=== PATIENT | female | born 2000 | race Two or more races ===

== ENCOUNTER 2020-03-16 06:07 | Emergency (ER) | payer MEDICAID ==
[~2020-03-16] VITALS: Ht 162.6 cm; Wt 75.7 kg
[~2020-03-16 06:07] MED LIST: IBUP600T27 PO; [UNRECOGNIZED DRUG - CODE] EX
[2020-03-16 06:27] VITALS: BP 94/71
[2020-03-16 07:14] LABS: Basophils # (auto) 0 10 ^3/uL (0-0.2); Basophils % (auto) 0.4 % (0.0-2.0); Eosinophils # (auto) 0.1 10 ^3/uL (0-0.8); Eosinophils % (auto) 1.6 % (0.0-7.0); Hematocrit 38.5 % (36.0-46.0); Hemoglobin 13.2 g/dL (12.2-16.2); Lymphocytes # (auto) 2.3 10 ^3/uL (0.4-5.4); Lymphocytes % (auto) 30.5 % (10.0-50.0); Mean Corpuscular Hemoglobin 29.8 pg (28.0-32.0); Mean Corpuscular Hgb Conc. 34.2 g/dL (32.0-36.0); Monocytes # (auto) 0.4 10 ^3/uL (0-1.3); Monocytes % (auto) 5.6 % (0.0-12.0); Neutrophils # (auto) 4.6 10 ^3/uL (1.6-8.6); Neutrophils % (auto) 61.9 % (37.0-80.0); Nucleated Red Blood Cells % 0.1 %; Platelet Count (auto) 267 10^3/uL (140-450); Red Blood Cells 4.42 10^6/uL (4.0-5.20); Red Cell Distribution Width 13.3 % (11.8-14.3); White Blood Cell 7.5 10^3/uL (4.4-10.8)
[2020-03-16] MEDS ORDERED: MORPHINE SULFATE 4 MG/ML SYR/VIAL IV ONE (07:15)
[2020-03-16] MEDS ORDERED: SODIUM CHLORIDE 0.9% 500 ML IVB ONE (07:15)
[2020-03-16] MEDS ORDERED: ONDANSETRON HCL 4 MG/2 ML VIAL IV ONE (07:15)
[2020-03-16 07:20] LABS: Calcium 8.6 mg/dL (8.5-10.1); Potassium 3.3 mmol/L (3.5-5.1)
[2020-03-16 07:25] LABS: BUN/Creatinine Ratio 21.8; Bilirubin, Total 0.6 mg/dL (0.2-1.0); Total Protein 7.4 g/dL (6.4-8.2)
[2020-03-16 08:23] LABS: Urine Bacteria FEW /hpf (None Seen); Urine Blood 2+ /uL (Negative); Urine Specific Gravity 1.016 (1.001-1.035); Urine WBC <1 /hpf (0 - 5)
== END 2020-03-16 09:01 | disposition home or self-care (01) ==
LOC: ER 06:07
DX: N80.9 Endometriosis, unspecified (principal); R10.2 Pelvic and perineal pain; Z79.899 Other long term (current) drug therapy
CPT/HCPCS: 36415; 80053; 81001; 83690; 84702; 85025; 96361; 96374; 96375; 99284; J2270; J2405

== ENCOUNTER 2021-12-05 07:14 | Emergency (ER) | payer MEDICAID ==
[~2021-12-05] VITALS: Ht 162.6 cm; Wt 63.5 kg
[2021-12-05 07:48] VITALS: BP 102/66
[2021-12-05] MEDS ORDERED: AZIT250T8 PO (08:31)
[2021-12-05] MEDS ORDERED: IBUP600T27 PO (08:31)
== END 2021-12-05 08:43 | disposition home or self-care (01) ==
LOC: ER 07:14
DX: J02.9 Acute pharyngitis, unspecified (principal); Z20.822 Contact with and (suspected) exposure to COVID-19
CPT/HCPCS: 36415

== ENCOUNTER 2024-11-05 22:19 | Emergency (ER) | payer MEDICAID, OTHER ==
[~2024-11-05] VITALS: Ht 162.6 cm; Wt 70.0 kg
[~2024-11-05 22:19] MED LIST changes: +AZIT-185 PO; +IBUP-1454 PO; -IBUP600T27 PO
[2024-11-05 23:09] LABS: Urine Bacteria None Seen /hpf (None Seen)
[2024-11-05 23:24] LABS: Urine Blood Negative /uL (Negative); Urine Clarity Clear (Clear); Urine Color Light-Yellow (Yellow); Urine Protein, UAD Negative (Negative); Urine Specific Gravity 1.018 (1.001-1.035); Urine Squamous Epithelial Cell FEW /hpf (<5); Urine Urobilinogen Normal (Negative); Urine WBC 1 /HPF (0-5); Urine pH 6.5 (5.0-9.0)
[2024-11-05 23:32] LABS: Basophils # (auto) 0.2 10 ^3/uL (0-0.2); Basophils % (auto) 1.6 % (0.0-2.0); Eosinophils # (auto) 0.1 10 ^3/uL (0-0.8); Hematocrit 36.5 % (36.0-46.0); Hemoglobin 12.5 g/dL (12.2-16.2); Lymphocytes # (auto) 2.3 10 ^3/uL (0.4-5.4); Lymphocytes % (auto) 23.6 % (10.0-50.0); Mean Corpuscular Hemoglobin 29.7 pg (28.0-32.0); Mean Corpuscular Hgb Conc. 34.2 g/dL (32.0-36.0); Monocytes # (auto) 0.7 10 ^3/uL (0-1.3); Monocytes % (auto) 7.1 % (0.0-12.0); Neutrophils # (auto) 6.5 10 ^3/uL (1.6-8.6); Neutrophils % (auto) 66.7 % (37.0-80.0); Platelet Count (auto) 234 10^3/uL (140-450); Red Blood Cells 4.19 10^6/uL (4.0-5.20); Red Cell Distribution Width 13.2 % (11.8-14.3); White Blood Cell 9.7 10^3/uL (4.4-10.8)
[2024-11-05 23:43] LABS: Chloride 107 mmol/L (98-107); Potassium 3.7 mmol/L (3.5-5.1); Sodium 138 mmol/L (136-145)
[2024-11-05 23:44] LABS: Anion Gap 9 (5-15); Calcium 8.9 mg/dL (8.7-10.4); Carbon Dioxide 22 mmol/L (20-31)
[2024-11-05 23:47] LABS: INR 0.97 (0.9-1.15); Partial Thromboplastin Time 27.8 SEC (24.5-34.5); Prothrombin Time 10.3 sec (9.3-11.8)
[2024-11-05 23:49] LABS: BUN/Creatinine Ratio 14.9 (10.0-20.0); Blood Urea Nitrogen 10 mg/dL (9-23); Glucose 91 mg/dL (74-106)
--- NOTE | 2024-11-05 23:56 | DVH ---
OB ULTRASOUND <14 WEEKS: HISTORY: 13 wk preg vag bleed TECHNIQUE: Multiple real-time grayscale sonographic images of the pelvis with duplex Doppler color f low, spectral and M-mode analysis. TRANSDUCERS: COMPARISON: None FINDINGS: There is a single live intrauterine . The crown rump length measures 80.6 mm corresponding t o an estimated gestational age of 14 weeks 0 days. MIKA: 05/06/25. cardiac activity was identifi ed with heart rate of 153 bpm. Placenta is anterior and appears unremarkable. Neither of the ovaries could be identified. No evidence of pelvic mass or fluid collection. IMPRESSION: Single live intrauterine with estimated gestational age of 14 weeks 0 days.
--- NOTE | 2024-11-06 00:28 | ED.PDOC ---
History of Present Illness HPI Comments 24-year-old female with current 13 week brought in by self complaining of vaginal spotting that started today. She also notes lower abdominal discomfort/cramping which she states she has had since she learned she was . She denies any heavy bleeding, fever, nausea, vomiting, diarrhea, constipation or dysuria. Chief Complaint: Vaginal Bleed Time Seen by MD: 23:00 Primary Care Provider: KANU Hernandez Notes: Nurses Notes, Medications, Allergies Allergies: Coded Allergies: NO KNOWN ALLERGIES (Unverified , 11/14/10) Home Meds Active Scripts Ibuprofen (Ibuprofen) 600 Mg Tab, 600 MG PO TID, #24 TAB Prov:DARIO CARLOS 12/05/21 Azithromycin (ZITHROMAX TABLET) 250 Mg Tb, 250 MG PO DAILY, #6 TAB Prov:DARIO CARLOS 12/05/21 Nznzipa-Hvlcwdvsay-Hpfeese (ICY HOT NO-MESS VAPOR GEL) Mess Vap Gel, 1 VAP EX Q4HP PRN, #1 UNIT Prov:GARY KOENIG N.PMayank 05/10/13 Ibuprofen (Ibuprofen) 600 Mg Tab, 600 MG PO TIDP PRN, #30 TAB Prov:GARY KOENIG N.PMayank 05/10/13 Information Source: Patient Mode of Arrival: Ambulatory Severity: Moderate Timing: Hours Duration: Since onset Prehospital treatment: None Past Medical History PAST MEDICAL HISTORY: Denies Surgical History: Tonsillectomy [employer] History: Other (Procedure to remove uterine cysts. Current 13 week . ) Family History Family History: Family hx of Cancer Family History (Other): Endometriosis Social History Smoker: Non-Smoker Alcohol: Denies ETOH Use Drugs: Denies Drug Use Lives In: Home All Other Systems: Reviewed and Negative (Comprehensive systems review obtained and negative except for what is stated in the HPI.) Physical Exam General Appearance: No Apparent Distress HEENT: Other (Pupils and face symmetric. Moist mucous membranes.) Neck: Full Range of Motion, Normal Inspection Respiratory: Lungs Clear, No Accessory Muscle Use, No Respiratory Distress, Normal Breath Sounds Cardiovascular: No Edema, No JVD, Regular Rate/Rhythm Breast Exam: Deferred Gastrointestinal: Non Tender, Soft Genitalia: Deferred Pelvic: Deferred Rectal: Deferred Extremities: Normal inspection, Normal range of motion, Non-tender, No pedal edema Neurologic: Alert (Oriented x4), Normal Affect, Normal Mood Cerebellar Function: NOT DONE Reflexes: NOT DONE Skin: Dry, Normal Color, Warm Lymphatic: NOT DONE Was a procedure done? Was a procedure done?: No Differential Dx Considerations may include: Threatened , subchorionic hemorrhage, coagulopathy, normal early , among others X-Ray, Labs, Meds, VS Vital Signs Date Time Temp Pulse Resp B/P (MAP) Pulse Ox O2 Delivery O2 Flow Rate FiO2 11/05/24 22:40 98.1 71 16 120/57 (78) 97 98.1 Lab Test 11/05/24 23:10 11/05/24 22:50 Range/Units White Blood Count 9.7 4.4-10.8 10^3/uL Red Blood Count 4.19 4.0-5.20 10^6/uL Hemoglobin 12.5 12.2-16.2 g/dL Hematocrit 36.5 36.0-46.0 % Mean Corpuscular Volume 87.0 80.0-100.0 fL Mean Corpuscular Hemoglobin 29.7 28.0-32.0 pg Mean Corpuscular Hemoglobin Concent 34.2 32.0-36.0 g/dL Red Cell Distribution Width 13.2 11.8-14.3 % Platelet Count 234 140-450 10^3/uL Mean Platelet Volume 6.9 6.9-10.8 fL Neutrophils (%) (Auto) 66.7 37.0-80.0 % Lymphocytes (%) (Auto) 23.6 10.0-50.0 % Monocytes (%) (Auto) 7.1 0.0-12.0 % Eosinophils (%) (Auto) 1.0 0.0-7.0 % Basophils (%) (Auto) 1.6 0.0-2.0 % Neutrophils # (Auto) 6.5 1.6-8.6 10 ^3/uL Lymphocytes # (Auto) 2.3 0.4-5.4 10 ^3/uL Monocytes # (Auto) 0.7 0-1.3 10 ^3/uL Eosinophils # (Auto) 0.1 0-0.8 10 ^3/uL Basophils # (Auto) 0.2 0-0.2 10 ^3/uL Nucleated Red Blood Cells 0.0 % Prothrombin Time 10.3 9.3-11.8 sec Prothrombin Time INR 0.97 0.9-1.15 Activated Partial Thromboplast Time 27.8 24.5-34.5 SEC Sodium Level 138 136-145 mmol/L Potassium Level 3.7 3.5-5.1 mmol/L Chloride Level 107 98-107 mmol/L Carbon Dioxide Level 22 20-31 mmol/L Anion Gap 9 5-15 Blood Urea Nitrogen 10 9-23 mg/dL Creatinine 0.67 0.550-1.02 mg/dL Glomerular Filtration Rate Calc 124 >90 mL/min BUN/Creatinine Ratio 14.9 10.0-20.0 Serum Glucose 91 74-106 mg/dL Calcium Level 8.9 8.7-10.4 mg/dL Beta HCG, Quantitative 81393.1 H 1.5-4.2 mIU/mL Urine Color Light-yellow Yellow Urine Clarity Clear Clear Urine pH 6.5 5.0-9.0 Urine Specific [place] 1.018 1.001-1.035 Urine Protein Negative Negative Urine Ketones Negative Negative Urine Blood Negative Negative /uL Urine Nitrite Negative Negative Urine Bilirubin Negative Negative Urine Urobilinogen Normal Negative mg/dL Urine Leukocyte Esterase Negative Negative /uL Urine RBC <1 0 - 4 /hpf Urine Microscopic WBC 1 0-5 /HPF Urine Squamous Epithelial Cells Few <5 /hpf Urine Bacteria None seen None Seen /hpf Urine Glucose Normal Normal mg/dL [place] [address] Ph: [phone] DIAGNOSTIC IMAGING Diagnostic Imaging Report : [id number] Signed PATIENT: ROSEMARY JONES ACCT: [id number] UNIT: [id number] : 2000 LOC: ER ROOM / BED: / AGE / SEX: 24 / F ADM STATUS: REG ER SERVICE [id number] ORDERING PHYSICIAN: SOHEILA LARSEN MD PROCEDURE(s): OB4US - OB ULTRASOUND COMP LESS 14WKS REASON: 13 wk preg vag bleed ORDER NUMBER(s): [id number], ACCESSION NUMBER(s): [id number] OB ULTRASOUND <14 WEEKS: HISTORY: 13 wk preg vag bleed TECHNIQUE: Multiple real-time grayscale sonographic images of the pelvis with duplex Doppler color flow, spectral and M-mode analysis. TRANSDUCERS: COMPARISON: None FINDINGS: There is a single live intrauterine . The crown rump length measures 80.6 mm corresponding to an estimated gestational age of 14 weeks 0 days. MIKA: 05/06/25. cardiac activity was identified with heart rate of 153 bpm. Placenta is anterior and appears unremarkable. Neither of the ovaries could be identified. No evidence of pelvic mass or fluid collection. IMPRESSION: Single live intrauterine with estimated gestational age of 14 weeks 0 days. ATED BY: CARLOS FERRELL MD DICTATED DATE/TIME: 11/05/242352 SIGNED BY: CARLOS FERRELL MD SIGNED DATE/TIME: 11/05/242352 CC: X-Ray, Labs, Meds, VS Comment 24-year-old female with current 13 week complaining of vaginal spotting Vitals unremarkable Exam unremarkable Rhythm strip independently interpreted by me: Sinus rhythm, rate 71, no ectopy. Ob ultrasound: IMPRESSION: Single live intrauterine with estimated gestational age of 14 weeks 0 days. CBC normal, basic metabolic panel normal, UA unremarkable, coagulation panel normal, serum quantitative hCG 01933.1 Patient treated with the following in the ED: Tylenol 1 g p.o. On re-evaluation, patient is resting comfortably with stable vitals. She is hemodynamically stable. She appears stable for discharge with close outpatient follow-up with her OBGYN. Time of 1ST Reevaluation: 23:30 Reevaluation 1ST: Unchanged Time of 2ND Reevaluation: 02:17 Reevaluation 2ND: Improved Patient Education/Counseling: Treatment, Need For Follow Up Family Education/Counseling: No Family Present Departure 1 Departure Time of Disposition: 02:17 Impression: Primary Impression: Vaginal bleeding affecting early Disposition: 01 HOME / SELF CARE / HOMELESS Condition: Stable Additional Instructions: Your blood and urine tests were unremarkable. Your ultrasound was normal. Please see the report below. Follow-up with your OBGYN in 1-[address] [address] Ph: [phone] DIAGNOSTIC IMAGING Diagnostic Imaging Report : [id number] Signed PATIENT: ROSEMARY JONES ACCT: [id number] UNIT: [id number] : 2000 LOC: ER ROOM / BED: / AGE / SEX: 24 / F ADM STATUS: REG ER SERVICE ORDERING PHYSICIAN: SOHEILA LARSEN MD PROCEDURE(s): OB4US - OB ULTRASOUND COMP LESS 14WKS REASON: 13 wk preg vag bleed ORDER NUMBER(s): [id number], ACCESSION NUMBER(s): [id number] OB ULTRASOUND <14 WEEKS: HISTORY: 13 wk preg vag bleed TECHNIQUE: Multiple real-time grayscale sonographic images of the pelvis with duplex Doppler color flow, spectral and M-mode analysis. TRANSDUCERS: COMPARISON: None FINDINGS: There is a single live intrauterine . The crown rump length measures 80.6 mm corresponding to an estimated gestational age of 14 weeks 0 days. MIKA: 05/06/25. cardiac activity was identified with heart rate of 153 bpm. Placenta is anterior and appears unremarkable. Neither of the ovaries could be identified. No evidence of pelvic mass or fluid collection. IMPRESSION: Single live intrauterine with estimated gestational age of 14 weeks 0 days. Discharged With: Self Critical Care Note Critical Care Time?: No Stability Stability form required: No Heart Score Heart Score: Heart Score Response (Comments) Value History N/A 0 EKG N/A 0 Age N/A 0 Risk Factors N/A 0 Troponin N/A 0 Total 0 I personally scribed for SOHEILA LARSEN MD ([email or web address]) on 11/06/24 at 00:28. Electronically submitted by Ilya Reinoso ([email or web address]). SOHEILA LARSEN MD November 06, 2024 00:28
[2024-11-06] MEDS: ACETAMINOPHEN 500 MG TAB or CAP PO ONE (02:38)
[2024-11-06 02:41] VITALS: BP 106/42; PULSE 71; RESP 20; TEMP 98.3; O2SAT 100
== END 2024-11-06 02:45 | disposition home or self-care (01) ==
LOC: ER 22:21
DX: O20.0 Threatened abortion (principal); Z90.89 Acquired absence of other organs; Z79.1 Long term (current) use of non-steroidal anti-inflammatories (NSAID)
CPT/HCPCS: 36415; 76801; 80048; 81001; 84702; 85025; 85610; 85730; 86900; 86901